=== PATIENT | female | born 1940 | race Caucasian/White ===

== ENCOUNTER → 2017-01-15 | Outpatient (CLI) | payer OTHER | LOC: MMPC 09:00 | PROVIDERS: ATTEND Nurse Practitioner Family | DX: I10 Essential (primary) hypertension (principal); M81.0 Age-related osteoporosis without current pathological fracture | CPT/HCPCS: 99213; G0463 ==

== ENCOUNTER → 2017-01-27 | Outpatient (CLI) | payer OTHER ==
[2017-01-27 14:23] LABS: BUN/CREATININE RATIO 24.28 (6-20); CALCIUM 8.9 mg/dL (8.7-10.7)
== END ==
LOC: LAB 13:24
PROVIDERS: ATTEND Nurse Practitioner Family
DX: M81.0 Age-related osteoporosis without current pathological fracture (principal)
CPT/HCPCS: 36415; 80048

== ENCOUNTER → 2017-02-01 | Outpatient (CLI) | payer OTHER | LOC: MMPC 09:00 | PROVIDERS: ATTEND Nurse Practitioner Family | DX: M81.0 Age-related osteoporosis without current pathological fracture (principal) | CPT/HCPCS: G0463; J0897 ==

== ENCOUNTER → 2017-02-22 | Outpatient (CLI) | payer OTHER ==
--- NOTE | 2017-02-22 15:09 | DI ---
RIGHT ANKLE, 02/22/2017 2:10 PM: Clinical History: Pain in the right ankle joint. Previous Exam: None at this facility. 3 views are submitted. On the AP and mortise views, there is the appearance of an avulsion fracture a t the tip of the medial malleolus. Soft tissue swelling is present in the region of the deltoid ligam ent. These findings are suspicious for an avulsion type fracture. The remainder of the ankle exam is normal. Reading: The history does not indicate the patient has had recent trauma but the findings involving the medial malleolus are suspicious for an avulsion fracture at the tip of the medial malleolus with potential injury to the deltoid ligament. This should be correlated with the clinical history and findings.
--- NOTE | 2017-02-22 15:10 | DI ---
RIGHT FOOT, 02/22/2017 2:10 PM: Clinical History: Right foot pain. Previous Exam: None at this facility. 3 views are submitted. There is no acute soft tissue, osseous, or joint abnormality. There is increas ed density in the region of the deltoid ligament on the AP projection. [facility] Reading: Normal left foot exam.
== END ==
LOC: MOB RAD 14:15
PROVIDERS: ATTEND Nurse Practitioner Family
DX: M25.571 Pain in right ankle and joints of right foot (principal); M21.371 Foot drop, right foot; M72.2 Plantar fascial fibromatosis
CPT/HCPCS: 73610; 73630; 99214; G0463

== ENCOUNTER → 2017-03-08 | Outpatient (CLI) | payer OTHER ==
--- NOTE | 2017-03-09 08:19 | DI ---
RIGHT KNEE, 03/08/2017 4:45 PM: Clinical History: Right knee pain. Previous Exam: None at this facility. 2 views are submitted. There is no acute soft tissue, osseous, or joint abnormality. There is narrowi ng of the medial compartment consistent with degenerative arthritic change. Reading: Mild to moderate narrowing of the medial compartment of the knee consistent with degenerative arthrit ic disease.
--- NOTE | 2017-03-09 08:22 | DI ---
RIGHT FOOT, 03/08/2017 4:45 PM: Clinical History: Pain in the right ankle and foot joints. Previous Exam: None at this facility. 3 views are submitted. There is no acute soft tissue, osseous, or joint abnormality. Joint space narr owing is present diffusely through the tarsal joints as well as the tarsometatarsal joints, the first metatarsophalangeal joint, and the IP joint of the great toe as well as the PIP and DIP joints of th e remaining toes. This diffuse involvement is consistent with degenerative arthritic disease. Reading: There is evidence of diffuse mild to moderate arthritic disease involving joints of the midfoot and f orefoot.
== END ==
LOC: ORTHO 16:46
PROVIDERS: ATTEND Orthopaedic Surgery
DX: M25.571 Pain in right ankle and joints of right foot (principal); M25.561 Pain in right knee; G57.31 Lesion of lateral popliteal nerve, right lower limb; M21.371 Foot drop, right foot; M19.071 Primary osteoarthritis, right ankle and foot; M17.11 Unilateral primary osteoarthritis, right knee
CPT/HCPCS: 73560; 73630; 99203; G0463

== ENCOUNTER → 2017-03-09 | Outpatient (CLI) | payer OTHER ==
--- NOTE | 2017-03-10 10:25 | DI ---
MRI RIGHT KNEE SCAN, 03/09/2017 2:56 PM: Clinical History: Right knee pain. Peroneal nerve palsy. Previous Exam: None at this facility. Technique: Axial, coronal, and sagittal PD and fat saturated PD; axial T1 weighted. There is no soft tissue edema. There is no significant joint effusion. There is a small 3 mm subchond ral cyst involving the most medial portion of the medial tibial plateau in the mid coronal plane. The medial and lateral collateral ligaments are normal. Intermediate signal intensity is present in the anterior cruciate ligament and in the most superior portion of the posterior cruciate ligament consis tent with chronic partial tears. The lateral meniscus is normal. There is a flap tear in the posterio r horn of the medial meniscus near the meniscal root on the undersurface. The body of the medial meni scus shows evidence of either a prior partial meniscectomy or marked degenerative change with "frayin g" of the inner margin. The quadriceps tendon is not visualized on this exam. The patellar and poplit eus tendons and the tendons of the medial and lateral heads of the gastrocnemius muscle are normal. T he articular surfaces of the medial and lateral compartments are thin but there is no deep fissuring present. Only the lower half of the patellar and femoral condylar surfaces are visualized in the flor cular surfaces are intact. There are is no soft tissue mass in proximity to the fibular head. There is no evidence of an intra-n eural ganglion of the common peroneal nerve or its branches. Denervation edema of the tibialis anteri or, extensor digitorum longus, and peroneus longus and brevis muscles is present. The lateral head of the gastrocnemius muscle and the short head of the biceps femoris muscle do not entrap the common pe roneal nerve. Separation of the common peroneal nerve into the superficial and deep branches appears normal. Readin. There is no soft tissue mass in proximity to the proximal fibula at the level of the common peron eal nerve. There is no intraneural ganglion involving the peroneal nerve. There is denervation edema of the tibialis anterior, extensor digitorum longus, and peroneus longus and brevis muscles. 2. There is a flap tear in the posterior horn of the medial meniscus in proximity to the meniscal ro ot. In the body of the medial meniscus there is either "fraying" of the inner margin or the patient h as had a previous partial meniscectomy. In proximity to this truncation of the body of the medial men iscus, is a subchondral cyst of the medial tibial plateau. Chronic partial tears are present in the A CL and the superior portion of the PCL. 3. The MCL, LCL, lateral meniscus, and the patellar and popliteus tendons and the tendons of the med ial and lateral heads of the gastrocnemius muscle are normal. The articular surfaces of the medial an d lateral compartments and the visualized portions of the patellofemoral compartment are intact.
== END ==
LOC: MRI 14:52
PROVIDERS: ATTEND Orthopaedic Surgery
DX: M25.561 Pain in right knee (principal); S83.241A Other tear of medial meniscus, current injury, right knee, initial encounter; M23.8X1 Other internal derangements of right knee
CPT/HCPCS: 73721

== ENCOUNTER → 2017-03-12 | Outpatient (CLI) | payer OTHER ==
[2017-03-12 15:45] LABS: BLOOD UREA NITROGEN 13 mg/dL (7-22); BUN/CREATININE RATIO 18.57 (6-20); CALCIUM 9.6 mg/dL (8.7-10.7)
[2017-03-12 15:46] LABS: SERUM ALBUMIN 4.2 g/dL (3.5-4.8)
--- NOTE | 2017-03-12 17:18 | EKG ---
[address] [id number] Measurements Intervals [place] Rate: 99 P: 66 MN: 152 QRS: -34 QRSD: 143 T: 118 QT: 372 QTc: 429 Interpretive Statements SINUS RHYTHM MARKED LEFT AXIS DEVIATION [QRS AXIS < -30] LEFT BUNDLE BRANCH BLOCK [120+ ms QRS DURATION, 80+ ms Q/S IN V1/V2, 85+ ms R IN I/aVL/V5/V6] WARNING: DATA QUALITY MAY AFFECT INTERPRETATION No previous ECG available for comparison Electronically Signed On 03-15-17 07:55:47 MDT by Jaiden Jackman MD [email or web address]
== END ==
LOC: EKG 14:42
PROVIDERS: ATTEND Orthopaedic Surgery
DX: I10 Essential (primary) hypertension (principal); I44.7 Left bundle-branch block, unspecified
CPT/HCPCS: 36415; 80053; 93005; 93010

== ENCOUNTER 2017-03-16 09:53 | Day surgery (SDC) | payer OTHER ==
[~2017-03-16 09:53] MED LIST: Clindamycin 900mg (Premix) 50 ML IV ONE; LIDOCAINE W/ SODIUM BICARB 0.5 ML SYR ONE; Lactated Ringers 1,000 ML PRIMARY IV ONE
[2017-03-16] MEDS ORDERED: fentaNYL Inj 250 MCG/5 ML VIAL ONE (11:08)
[2017-03-16] MEDS ORDERED: LIDOCAINE MPF 2% - 5 ML (20 MG/1 ML) ONE (11:08)
[2017-03-16] MEDS ORDERED: MIDAZOLAM 5 MG/1 ML ONE (11:08)
[2017-03-16] MEDS ORDERED: ONDANSETRON 4 MG/2 ML VIAL IVP PRN (12:46)
[2017-03-16] MEDS ORDERED: CALCIUM CARBONATE 500 MG (TUMS) CHEWABLE TABLET PO PRN (12:46)
[2017-03-16] MEDS ORDERED: Ondansetron ODT Tab 8 MG TAB PO PRN (12:46)
[2017-03-16] MEDS ORDERED: BISACODYL 5 MG TABLET PO PRN (12:46)
[2017-03-16] MEDS ORDERED: HYDROcodone-APAP 7.5 MG-325 MG TABLET PO PRN (12:46)
[2017-03-16] MEDS ORDERED: ACETAMINOPHEN 325 MG TABLET PO PRN (12:46)
[2017-03-16] MEDS ORDERED: MAG HYDROX/AL HYDROX/SIMETH 30 ML SUSP PO PRN (12:46)
[2017-03-16] MEDS ORDERED: BISACODYL 10 MG SUPPOSITORY RECTAL PRN (12:46)
[2017-03-16] MEDS ORDERED: diphenhydrAMINE 25 MG CAPSULE PO PRN (12:46)
[2017-03-16] MEDS ORDERED: HYDROmorphone 2 MG/1 ML IVP PRN ×2 (12:46→13:09)
[2017-03-16] MEDS ORDERED: Prochlorperazine Tab 10 MG TAB PO PRN (12:46)
[2017-03-16] MEDS ORDERED: IBUPROFEN 400 MG TABLET PO PRN (12:46)
[2017-03-16] MEDS ORDERED: NORMAL SALINE 10 ML SYRINGE FLUSH IVP PRN ×2 (12:46→13:09)
[2017-03-16] MEDS ORDERED: Lactated Ringers 1,000 ML PRIMARY IV SCH (13:00)
[2017-03-16] MEDS ORDERED: HYDROcodone-APAP 7.5 MG-325 MG TABLET PO ONE (13:38)
[2017-03-16 15:02] VITALS: TEMP 98.7
[2017-03-16 15:13] VITALS: RESP 16
[2017-03-17] MEDS ORDERED: ASPIRIN 325 MG EC TABLET PO SCH (09:00)
== END 2017-03-16 14:40 | disposition home or self-care (01) ==
LOC: SDSC 09:53
PROVIDERS: ATTEND Orthopaedic Surgery
DX: G57.31 Lesion of lateral popliteal nerve, right lower limb (principal); M25.571 Pain in right ankle and joints of right foot; M25.561 Pain in right knee; M21.371 Foot drop, right foot
CPT/HCPCS: 64708; J2001; J2250; J2704; J3010; S0077; J7120

== ENCOUNTER → 2017-03-18 | Outpatient (CLI) | payer OTHER | LOC: MMPC 10:00 | PROVIDERS: ATTEND Orthopaedic Surgery | DX: G57.31 Lesion of lateral popliteal nerve, right lower limb (principal); M21.371 Foot drop, right foot ==

== ENCOUNTER → 2017-03-22 | Outpatient (CLI) | payer OTHER | LOC: MMPC 10:00 | PROVIDERS: ATTEND Orthopaedic Surgery | DX: G57.31 Lesion of lateral popliteal nerve, right lower limb (principal) ==

== ENCOUNTER → 2017-03-29 | Outpatient (CLI) | payer OTHER | LOC: MMPC 10:00 | PROVIDERS: ATTEND Orthopaedic Surgery | DX: G57.31 Lesion of lateral popliteal nerve, right lower limb (principal); Z48.02 Encounter for removal of sutures ==

== ENCOUNTER → 2017-04-08 | Outpatient (CLI) | payer OTHER ==
--- NOTE | 2017-04-08 15:48 | DI ---
History: Ankle and foot pain Comparison: February 22, 2017 Findings: A small linear osseous fragment is adjacent to the medial malleolus is again demonstrated the appeara nce is consistent with an avulsion fracture. There are no new injuries The nonstressed mortise is normal in alignment impression: Avulsion injury to the medial malleolus, not significantly changed in appearance as compared with, Ju 2016
--- NOTE | 2017-04-08 16:14 | DI ---
History: Ankle and foot pain Comparison: March 08, 2017 Findings: No fracture No malalignment No destructive/erosive lesions. No soft tissue foreign bodies No significant changes compared with March 08, 2007 Impression: No acute injury No destructive changes No significant changes compared with March 08, 2017
== END ==
LOC: ORTHO 15:12
PROVIDERS: ATTEND Orthopaedic Surgery
DX: Z48.811 Encounter for surgical aftercare following surgery on the nervous system (principal); G57.31 Lesion of lateral popliteal nerve, right lower limb; M21.371 Foot drop, right foot; Z98.890 Other specified postprocedural states
CPT/HCPCS: 73610; 73630